=== PATIENT | male | born 2000 | race Caucasian/White ===

== ENCOUNTER 2022-11-11 20:53 | Emergency (ER) | payer BC, MEDICAID, SELFPAY ==
[2022-11-11 21:04] VITALS: BP 119/77; PULSE 102; RESP 16; TEMP 36.4; O2SAT 98; BMI 21.2
--- NOTE | 2022-11-11 21:10 | ED_ITS ---
HPI - Allergic Reaction General: Chief complaint: Allergic Reaction Stated complaint: Bee Stings/ Allergic reaction Time Seen by Provider: 11/11/22 21:09 History of Present Illness: HPI narrative: Patient was stung by bee at about 1930. Patient reports a sting to his shoulder and back of his head. He had taken 25 mg of Benadryl and then took a shower and then started having increased hives and feeling of distress he took another 25 mg of Benadryl. Patient then came to the emergency department. Patient denies any chronic medical problems. Patient did have 1 prior episode of a reaction to a bee sting which caused him to come to the ER about 5 years ago. Patient reports no severe respiratory difficulty but reports nausea and extensive hives. Associated symptoms: Reports nausea Review of Systems General: Reports: 10 or more systems reviewed and unremarkable except in HPI and below Const: Reports: malaise Card: Denies: chest pain Resp: Denies: dyspnea GI: Reports: nausea : Denies: difficulty urinating Skin/Breast: Reports: rash Physical Exam Const: COMMON NORMALS: alert HENMT: COMMON NORMALS: normocephalic HEAD & SCALP: normocephalic THROAT: posterior oropharynx normal Resp: COMMON NORMALS: normal respiratory effort and clear to auscultation bilaterally AUSCULTATION: clear to auscultation bilaterally Cardio: COMMON NORMALS: regular rate and regular rhythm RATE: regular rate RHYTHM: regular rhythm GI: PALPATION: No Tenderness to palpation present (GI) Extremity: COMMON NORMALS: full ROM Neuro: SENSORIUM/ORIENTATION: Yes alert Skin: RASHES: rashes noted Course Vital Signs: Vital signs: Vital Signs Temperature 97.5 F L 11/11/22 21:04 Pulse Rate 90 11/11/22 22:36 Respiratory Rate 17 11/11/22 22:36 Blood Pressure 108/64 11/11/22 22:36 Pulse Oximetry 98 11/11/22 22:36 Oxygen Delivery Me thod Room Air 11/11/22 22:22 MDM - Allergic Reaction Medical Decision Making 22-year-old male patient comes in today for rash and feeling of malaise after being stung by a bee. Patient x-ray reports to bee stings 1 to the back of his head and 1 to his shoulder. Patient has extensive hives and redness across his torso and upper extremity. Respirations are even lungs are clear to auscultation. Patient reports some difficulty swallowing. Vital signs are normal. Differential diagnosis includes but not limited to anaphylaxis, localized reaction to bee sting, allergic reaction to bee sting. Patient was given a dose of epinephrine due to the extensive rash and nausea. Patient had immediate relief of rash but became hypotensive and bradycardic after injection of epinephrine. Believe patient had a vasovagal response. Patient improved after 5 to 10 minutes of Trendelenburg position. Patient then was able to continue improvement with cessation of rash. Patient was treated with steroids and recommended use diphenhydramine as needed for further itching and discomfort. Recommend follow-up with primary care return to the ER for worsening symptoms. Patient reported understanding and agreed to plan. Discharge Plan Discharge Patient Disposition: Home Clinical Impression: Allergic reaction Qualifiers: Encounter type: initial encounter Qualified Code(s): T78.40XA - Allergy, unspecified, initial encounter Condition: Stable Prescriptions: New prednisone 20 mg tablet 20 mg PO BID 3 Days Qty: 6 0RF Discharge Orders: Discharge ED (Routine); Ordered 11/11/22 Ordered By: Trino Marks Referrals: Wendy Lester MD [Primary Care Provider] - Discharge Diet: Usual diet Discharge Activity: Increase activity as tolerated Patient Instructions: Allergic Reaction Activity Restrictions/Additional Instructions: Drink plenty of water and fluids. Use acetaminophen or ibuprofen for pain. Use diphenhydramine as needed for itching or rash. Continue steroid 1 tablet twice a day for the next 3 days. Follow-up with primary care as needed. Return to ED for new concerns. Coding Level of Care Code ED [employer] for Bernarda Villarreal
[2022-11-11] MEDS: EPINEPHrine 1 mg/mL INJ 0.3 MG IM (21:20)
[2022-11-11 21:26] VITALS: BP 91/55; PULSE 57; RESP 22; O2SAT 94
[2022-11-11] MEDS: ondansetron 2 mg/ML SDV 2 mL 4 MG IVP (21:26)
[2022-11-11] MEDS: dexamethasone 10 mg/mL INJ IVP (21:27)
[2022-11-11] MEDS: famotidine 20 mg/2 mL INJ 40 MG IVP (21:27)
[2022-11-11 21:32] VITALS: BP 102/69; PULSE 85; RESP 20; O2SAT 100
[2022-11-11 21:59] VITALS: BP 104/72; PULSE 82; O2SAT 100
[2022-11-11 22:22] VITALS: BP 110/60; PULSE 88; RESP 23; O2SAT 95
[2022-11-11 22:36] VITALS: BP 108/64; PULSE 90; RESP 17; O2SAT 98
== END 2022-11-11 22:40 | disposition home or self-care (01) ==
PROVIDERS: Emergency Provider Nurse Practitioner Family; Family Provider Family Medicine; PCP Family Medicine
DX: T63.441A Toxic effect of venom of bees, accidental (unintentional), initial encounter (principal)
CPT/HCPCS: 96372; 96374; 96375; 99284; J0171; J1100; J2405; J3490